=== PATIENT | male | born 1970 ===

== ENCOUNTER 2017-04-10 17:09 | Emergency (ER) | payer SELFPAY ==
[2017-04-10 18:03] LABS: ALBUMIN 3.9 g/dL (3.4-5.0); ALKALINE PHOSPHATASE 125 U/L (46-116); ALT (SGPT) 28 U/L (10-68); BILIRUBIN - TOTAL 0.44 mg/dL (0.2-1.3); CALC OSMOLALITY 271 mosm/kg (275-300); CALCIUM 9.4 mg/dL (8.5-10.1); CARBON DIOXIDE 29.2 mmol/L (21.0-32.0); CHLORIDE - SERUM 95 mmol/L (98-107); GLUCOSE 237 mg/dL (74-106); POTASSIUM - SERUM 4.4 mmol/L (3.5-5.1); PROTEIN - SERUM 8.5 g/dL (6.4-8.2); SODIUM 132 mmol/L (136-145); UREA NITROGEN 9 mg/dL (7-18); eGFR NON AFRICAN AMERICAN 85 mL/min (90-120)
[2017-04-10 19:24] LABS: BASOPHILS 0.3 % (0-2); EOSINOPHILS 2.3 % (0-7); HEMATOCRIT 39.7 % (42.0-54.0); HEMOGLOBIN 13.4 g/dL (13.5-17.5); IMMATURE GRANULOCYTES 0.4 % (0-5); LYMPHOCYTES 27.4 % (15-50); MCH 28.8 pg (26.0-34.0); MCHC 33.8 g/dL (31.0-37.0); MCV 85.2 fL (80.0-100.0); MEAN PLATELET VOLUME 11.5 fL (7.4-10.4); MONOCYTES 5.5 % (2-11); NEUTROPHILS 64.1 % (40-80); PLATELET COUNT 224 10x3/uL (130-400); RBC 4.66 10x6/uL (4.20-6.10); RDW 13.4 % (11.5-14.5); WBC 13.7 10x3/uL (4.8-10.8)
[2017-04-10 19:37] LABS: MAGNESIUM - SERUM 1.4 mg/dL (1.8-2.4)
== END 2017-04-11 00:57 | disposition home or self-care (01) ==
LOC: D.ER 17:09
PROVIDERS: Nurse Practitioner Family
DX: F41.9 Anxiety disorder, unspecified (principal); E11.9 Type 2 diabetes mellitus without complications; Z87.820 Personal history of traumatic brain injury; E83.42 Hypomagnesemia